=== PATIENT | male | born 1995 | race Asian ===

== ENCOUNTER 2016-08-16 01:37 | Emergency (ER) | payer OTHER ==
[2016-08-16 01:44] VITALS: RESP 16; TEMP 97.9
[2016-08-16] MEDS ORDERED: cefTRIAXone 1 GM in D5W 50 ML IM ONE (03:33)
--- NOTE | 2016-08-16 03:33 | EDPHY ---
H & P Stated Complaint: wants to be tested for STD's HPI/ROS: HPI The patient presents with concern for exposure to possible STD. He had unprotected sex with a woman a few days ago who later texted him and told him that she has HSV. He does not have any symptoms but is concerned. He has no prior history of STDs. He is not aware that his partner has any other contagious diseases. REVIEW OF SYSTEMS Constitutional: No fever, no chills. Eyes: No discharge. PMHx: Healthy \ PHYSICAL General Appearance: Alert, no distress Eyes: Pupils equal and round ENT, Mouth: Mucous membranes moist Respiratory: Breathing comfortably Neurological: A&O, moves all extremities Skin: Warm and dry, no rashes Psychiatric: Patient is oriented X 3, there is no agitation Source: Patient Exam Limitations: No limitations - Personal History Current Tetanus/Diphtheria Vaccine: Yes Current Tetanus Diphtheria and Acellular Pertussis (TDAP): Yes - Medical/Surgical History Hx Asthma: No Hx Chronic Respiratory Disease: No Hx Diabetes: No Hx Cardiac Disease: No Hx Renal Disease: No Hx Cirrhosis: No Hx Alcoholism: No Hx HIV/AIDS: No Hx Splenectomy or Spleen Trauma: No Other PMH: denies - Social History Smoking Status: Current every day smoker Constitutional: Initial Vital Signs Temperature (C) 36.6 C 08/16/16 01:43 Heart Rate 77 08/16/16 01:43 Respiratory Rate 16 08/16/16 01:43 Blood Pressure 146/104 H 08/16/16 01:43 O2 Sat (%) 98 08/16/16 01:43 O2 Delivery Mode Room Air Allergies/Adverse Reactions: No Known Allergies Allergy (Unverified 08/16/16 01:42) Home Medications: Medication Instructions Recorded NK [No Known Home Meds] 08/16/16 Medical Decision Making Differential Diagnosis: This is a 20-year-old man who is status post unprotected sex a few days ago. Found out his partner has HSV per report. He does not have any symptoms and is concerned about exposures. He would like prophylaxis. I explained that we cannot prophylaxis against HSV. I will give him ceftriaxone and azithromycin to prevent committee and gonorrhea per his request. We have sent off urine and I have explained to him his test results will be back in the next few days. - Data Points Medications Given: Discontinued Medications Azithromycin (Zithromax) 1,000 mg PO EDNOW ONE PRN Reason: Protocol Stop: 08/16/16 03:35 Last Admin: 08/16/16 03:46 Dose: 1,000 mg Ceftriaxone Sodium (Rocephin Im Syringe) 250 mg IM ONCE ONE Stop: 08/16/16 04:01 Last Admin: 08/16/16 04:13 Dose: 250 mg Departure - Departure Disposition: Home, Routine, Self-Care Clinical Impression: Sexually transmitted disease exposure Condition: Good Instructions: Sexually Transmitted Diseases (ED), Condom Use (ED), Safe Sex (ED ) Referrals: NONE *PRIMARY CARE P,. [Primary Care Provider] - As per Instructions
[2016-08-16] MEDS ORDERED: AZITHROMYCIN 250 MG TAB PO ONE (03:34)
[2016-08-16] MEDS ORDERED: cefTRIAXone 0.25 GM in NS 100 ML IM ONE (03:41)
[2016-08-16] MEDS ORDERED: CEFTRIAXONE IM 350 MG/ML SYRINGE IM ONE (04:00)
[2016-08-16 04:19] VITALS: BP 140/84; PULSE 81; O2SAT 95
== END 2016-08-16 04:19 | disposition home or self-care (01) ==
DX: Z20.2 Contact with and (suspected) exposure to infections with a predominantly sexual mode of transmission (principal); F17.200 Nicotine dependence, unspecified, uncomplicated
CPT/HCPCS: J0696